=== PATIENT | female | born 1955 | race Caucasian/White ===

== ENCOUNTER 2018-04-11 06:01 | Day surgery (SDC) | payer MEDICAID ==
[~2018-04-11] VITALS: Ht 165.1 cm; Wt 80.7 kg
[2018-04-11] MEDS ORDERED: LOSA50TA66 PO (07:09)
[2018-04-11] MEDS ORDERED: OMEP20TC12 PO (07:09)
[2018-04-11] MEDS ORDERED: ASPI-1718 PO (07:12)
[2018-04-11] MEDS ORDERED: fentaNYL 0.05 MG/ML VIAL ONE (07:32)
[2018-04-11] MEDS ORDERED: MIDAZOLAM 2 MG/2 ML VIAL ONE ×2 (07:32)
[2018-04-11] MEDS ORDERED: MIDAZOLAM 2 MG/2 ML VIAL IVP ONE (08:35)
== END 2018-04-11 09:03 | disposition home or self-care (01) ==
LOC: MDS 06:01 → MMU 06:02 → MDS 09:03
PROVIDERS: ATTEND Internal Medicine Gastroenterology
DX: K44.9 Diaphragmatic hernia without obstruction or gangrene (principal); I10 Essential (primary) hypertension; J45.909 Unspecified asthma, uncomplicated; E66.9 Obesity, unspecified; Z68.29 Body mass index [BMI] 29.0-29.9, adult; Z98.890 Other specified postprocedural states; Z79.82 Long term (current) use of aspirin; Z79.899 Other long term (current) drug therapy; Z90.49 Acquired absence of other specified parts of digestive tract; Z83.3 Family history of diabetes mellitus
CPT/HCPCS: 36415; 43239; 86677; J2250; J3010